=== PATIENT | male | born 1985 | race Caucasian/White ===

== ENCOUNTER 2022-04-28 11:02 | Outpatient (CLI) | payer OTHER, SELFPAY ==
[2022-04-28 14:08] LABS: Chloride* 105 mmol/L (96-114); Sodium* 139 mmol/L (135-149)
[2022-04-28 14:09] LABS: Potassium* 4.5 mmol/L (3.6-5.1)
[2022-04-28 14:11] LABS: Blood Urea Nitrogen* 13 mg/dL (5-24); Carbon Dioxide* 27 mmol/L (20-32); Cholesterol* 168 mg/dL (90-199); Creatinine* 0.8 mg/dL (0.5-1.5); Estimated Glomerular Filt Rate 118 ml/min; Glucose* 85 mg/dL (60-115)
[2022-04-28 14:12] LABS: Calcium* 9.7 mg/dL (8.4-10.6); HDL Cholesterol* 39 mg/dL (>=40); LDL Cholesterol Calculated 77 mg/dL (<100); Triglycerides* 261 mg/dL (40-149)
== END 2022-04-28 11:03 | disposition home or self-care (01) ==
PROVIDERS: PCP Family Medicine; Visit Provider Family Medicine
DX: I10 Essential (primary) hypertension (principal); Z13.6 Encounter for screening for cardiovascular disorders
CPT/HCPCS: 80048; 80061

== ENCOUNTER 2023-07-18 11:11 | Outpatient (CLI) | payer OTHER, SELFPAY | END 2023-07-18 11:12 | disposition home or self-care (01) | LOC: FBOREF 11:11 | PROVIDERS: PCP Family Medicine; Visit Provider Family Medicine | DX: I10 Essential (primary) hypertension (principal) | CPT/HCPCS: 80048 ==

== ENCOUNTER 2023-11-29 19:28 | Outpatient (CLI) | payer MEDICAID, SELFPAY ==
--- NOTE | 2024-01-03 08:37 | W.PM.SLEEP ---
Sleep Study Details Details Interpreting Provider: Medina Date of Sleep Study: 11/29/23 Sleep Study Details: STUDY TYPE:? Home unattended ? BMI:? 30.5 ORDERING PROVIDER:? Medina INDICATION:? Concern about sleep apnea ? SLEEP SUMMARY:? 120.5 minutes monitored. Total recording time 320 minutes RESPIRATORY SUMMARY:? AHI 51.3 Low oxygen 83 3.5% of study oxygen less than 90% Snoring 93% PERIODIC LIMB MOVEMENTS OF SLEEP:? Not recorded CARDIAC:? Range 55-90, mean 64.7 IMPRESSION:? Severe obstructive sleep apnea. This study was marred by a poor sleep efficiency but 2 hours of dated should be adequate particularly given the severity of the apnea. RECOMMENDATION: Treatment options would include AutoSet CPAP. Patient may need to progress to bilevel.
== END 2023-11-29 19:29 | disposition home or self-care (01) ==
LOC: SLEEP 19:29
PROVIDERS: PCP Family Medicine; Visit Provider Otolaryngology
DX: G47.33 Obstructive sleep apnea (adult) (pediatric) (principal)
CPT/HCPCS: 95806